=== PATIENT | male | born 1970 | race Caucasian/White ===

== ENCOUNTER 2018-04-18 16:23 | Emergency (ER) | payer MEDICARE, MEDICAID ==
[2018-04-18 16:50] VITALS: BP 131/79
--- NOTE | 2018-04-18 17:03 | EDM.PDOC ---
ED HPI GENERAL MEDICAL PROBLEM - General Chief Complaint: Cardiovascular Problem Stated Complaint: SWELLING IN HIS LEGS AND HIGH BP Time Seen by Provider: 04/18/18 16:44 - History of Present Illness INITIAL COMMENTS - FREE TEXT/NARRATIVE: HISTORY AND PHYSICAL: History of present illness: The patient is a 48-year-old male with a history of hypertension hypercholesterolemia and mental challenges who resides at [facility] and presents with staff with their concerns about elevated blood pressure today of 142/90 and lower extremity edema. Patient says his legs are not painful and has been doing a lot of standing and walking and he is compliant with his medications but his legs are swollen. The report that was given they noticed increased swelling today but he is not short of breath or having any chest pain no abdominal pain no fevers chills nausea or vomiting. Patient's medications are prescribed by Dr. Becker at [facility] who was not in the clinic for me to have a dialogue with him. The only diuretic the patient is taking his hydrochlorothiazide 12.5 mg daily. Patient has no complaints and when asked about these ever worn compression hose he says he doesn't recall that. His legs are bilaterally swollen and he says it does not extend beyond the knees. Neurosensory changes are unchanged and he has no weakness in his legs. Review of systems: As per history of present illness and below otherwise all systems reviewed and negative. Past medical history: As per history of present illness and as reviewed below otherwise noncontributory. Surgical history: As per history of present illness and as reviewed below otherwise noncontributory. Social history: No reported history of drug or alcohol abuse. Family history: As per history of present illness and as reviewed below otherwise noncontributory. Physical exam: General: Well-developed well-nourished man who is nontoxic and vital signs were noted by me. He is speaking clearly and easily without breathlessness and has no visible facial swelling. HEENT: Atraumatic, normocephalic, negative for conjunctival pallor or scleral icterus, mucous membranes moist, throat clear, neck supple, nontender, trachea midline. Lungs: Clear to auscultation, breath sounds equal bilaterally, chest nontender. No work of breathing rales stridor or accessory muscle Heart: S1S2, regular rate and rhythm no overt murmurs Abdomen: Soft, nondistended, nontender. Negative for masses or hepatosplenomegaly. Negative for costovertebral tenderness. No fluid wave is appreciated bowel sounds are normoactive Pelvis: Stable nontender. Genitourinary: Deferred. Rectal: Deferred. Extremities: Atraumatic, negative for cords or calf pain. Neurovascular unremarkable. There is +1 pedal edema bilaterally but the legs are symmetric and there is soft tissue edema from the knees to the feet bilaterally. There is no redness or rashes or lesions appreciated on the legs. Neuro: Awake, alert, oriented. Cranial nerves II through XII unremarkable. Cerebellum unremarkable. Motor and sensory unremarkable throughout. Exam nonfocal. Diagnostics: CBC CMP UA chest x-ray Therapeutics: Potassium orally, Lasix x and dose The staff at bedside from [facility] state that he has an appointment with Dr. Becker on Sunday of next week. I discussed with them testing results and said that I will give one dose of Lasix along with a dose of potassium here but have recommended keeping the clinic follow-up appointment if the swelling persists. I've also recommended that the patient get knee-high compression stockings at the pharmacy or [facility] and to elevate his legs. Caregiver bedside says he does sit in a chair with his legs down for long periods of time. I've also talked about inducing salt intake in his diet if possible. Impression: Bilateral Lower extremity edema Definitive disposition and diagnosis as appropriate pending reevaluation and review of above. - Related Data Allergies Allergy/AdvReac Type Severity Reaction Status Date / Time No Known Allergies Allergy Verified 04/18/18 16:48 Home Meds: Home Meds Aspirin [Ecotrin] 81 mg PO DAILY 03/31/16 [History] Hydrochlorothiazide 12.5 mg PO DAILY 03/31/16 [History] [place] Carbonate [Eskalith CR] 1 tab PO BID 03/31/16 [History] Polyethylene Glycol 3350 [Miralax] 17 gm PO DAILY 03/31/16 [History] Potassium Chloride 10 meq PO DAILY 03/31/16 [History] Venlafaxine [Effexor XR] 150 mg PO DAILY 03/31/16 [History] amLODIPine [Norvasc] 10 mg PO DAILY 03/31/16 [History] atorvaSTATin [Lipitor] 10 mg PO DAILY 03/31/16 [History] buPROPion HCl [Wellbutrin Xl] 300 mg PO DAILY 04/18/18 [History] Past Medical History HEENT History: Other HEENT History: wears glasses Cardiovascular History: Reports: High Cholesterol, Hypertension Respiratory History: Reports: None Gastrointestinal History: Reports: None Genitourinary History: Reports: None Musculoskeletal History: Reports: None Neurological History: Reports: TIA, Other (See Below) Other Neuro History: cognitive deficits Psychiatric History: Reports: Anxiety, Bipolar, Depression, Developmental Delay Endocrine/Metabolic History: Reports: Obesity/BMI 30+, Other (See Below) Hematologic History: Reports: None Immunologic History: Reports: None Oncologic (Cancer) History: Reports: None Dermatologic History: Reports: None - Infectious Disease History Infectious Disease History: Reports: None - Past Surgical History HEENT Surgical History: Reports: Other (See Below) Social & Family History - Family History Family Medical History: Noncontributory ED ROS GENERAL - Review of Systems Review Of Systems: ROS reveals no pertinent complaints other than HPI. ED EXAM, GENERAL - Physical Exam Exam: See Below (See dictation) Course - Vital Signs Last Recorded V/S: Last Vital Signs Temp 36.8 C 04/18/18 16:43 Pulse 77 04/18/18 16:43 Resp 18 04/18/18 16:43 BP 131/79 04/18/18 16:43 Pulse Ox 96 04/18/18 16:43 - Orders/Labs/Meds Orders: Active Orders 24 hr Category Date Time Status Chest 1V Frontal [CR] Stat Exams 04/18/18 16:58 Taken UA W/MICROSCOPIC [URIN] Stat Lab 04/18/18 18:00 Received Furosemide [Lasix] Med 04/18/18 18:06 Once 20 mg PO ONETIME ONE Labs: Laboratory Tests 04/18/18 04/18/18 Range/Units 17:10 17:10 WBC 9.36 (4.0-11.0) K/uL RBC 4.05 L (4.50-5.90) M/uL Hgb 12.3 L (13.0-17.0) g/dL Hct 36.7 L (38.0-50.0) % MCV 90.6 (80.0-98.0) fL MCH 30.4 (27.0-32.0) pg MCHC 33.5 (31.0-37.0) g/dL RDW Std Deviation 45.7 (28.0-62.0) fl RDW Coeff of Cash 14 (11.0-15.0) % Plt Count 317 (150-400) K/uL MPV 8.10 (7.40-12.00) fL Neut % (Auto) 72.9 (48.0-80.0) % Lymph % (Auto) 13.4 L (16.0-40.0) % [place] % (Auto) 9.6 (0.0-15.0) % Eos % (Auto) 3.7 (0.0-7.0) % Baso % (Auto) 0.4 (0.0-1.5) % Neut # (Auto) 6.8 H (1.4-5.7) K/uL Lymph # (Auto) 1.3 (0.6-2.4) K/uL [place] # (Auto) 0.9 H (0.0-0.8) K/uL Eos # (Auto) 0.4 (0.0-0.7) K/uL Baso # (Auto) 0.0 (0.0-0.1) K/uL Nucleated RBC % 0.0 /100WBC Nucleated RBCs # 0 K/uL Sodium 139 (136-148) mmol/L Potassium 3.3 L (3.5-5.1) mmol/L Chloride 107 (98-107) mmol/L Carbon Dioxide 27.9 (21.0-32.0) mmol/L BUN 20 H (7.0-18.0) mg/dL Creatinine 1.4 H (0.8-1.3) mg/dL Est Cr Clr Drug Dosing 56.13 mL/min Estimated GFR (MDRD) 54.1 ml/min Glucose 145 H (74-106) mg/dL Calcium 9.2 (8.5-10.1) mg/dL Total Bilirubin 0.6 (0.2-1.0) mg/dL AST 19 (15-37) IU/L ALT 21 (14-63) IU/L Alkaline Phosphatase 85 (46-116) U/L Total Protein 7.3 (6.4-8.2) g/dL Albumin 3.6 (3.4-5.0) g/dL Globulin 3.7 H (2.0-3.5) g/dL Albumin/Globulin Ratio 1.0 L (1.3-2.8) Meds: Medications Discontinued Medications Generic Name Dose Route Start Last Admin Trade Name Chele PRN Reason Stop Dose Admin Furosemide 40 mg 04/18/18 18:04 Lasix PO 04/18/18 18:05 ONETIME ONE Potassium Chloride 40 meq 04/18/18 18:04 Klor-Con M20 PO 04/18/18 18:05 ONETIME ONE Departure - Departure Time of Disposition: 18:25 Disposition: Home, Self-Care 01 Condition: Good Clinical Impression: Bilateral lower extremity edema Referrals: PCP,None [Primary Care Provider] - Forms: ED Department Discharge Additional Instructions: The following information is given to patients seen in the emergency department who are being discharged to home. This information is to outline your options for follow-up care. We provide all patients seen in our emergency department with a follow-up referral. The need for follow-up, as well as the timing and circumstances, are variable depending upon the specifics of your emergency department visit. If you don't have a primary care physician on staff, we will provide you with a referral. We always advise you to contact your personal physician following an emergency department visit to inform them of the circumstance of the visit and for follow-up with them and/or the need for any referrals to a consulting specialist. The emergency department will also refer you to a specialist when appropriate. This referral assures that you have the opportunity for followup care with a specialist. All of these measure are taken in an effort to provide you with optimal care, which includes your followup. Under all circumstances we always encourage you to contact your private physician who remains a resource for coordinating your care. When calling for followup care, please make the office aware that this follow-up is from your recent emergency room visit. If for any reason you are refused follow-up, please contact the [facility] emergency department at and ask to speak to the emergency department charge nurse. [address] [place] [address] Please continue all home medications and keep your appointment on Sunday with Dr. Becker. Please buy [id number] compression knee high hose at either [facility] or [facility] to help with the swelling. Elevate the legs as much as possible and reduce sodium in the diet. You have been given a small dose of Lasix here so we will have increased urination over the next 8-12 hours. Please also eat more potassium-rich foods such as bananas whole-grain and vegetables. Return to ER as needed and as discussed. - My Orders Last 24 Hours: My Active Orders 04/18/18 16:58 Chest 1V Frontal [CR] Stat 04/18/18 18:00 UA W/MICROSCOPIC [URIN] Stat 04/18/18 18:06 Furosemide [Lasix] 20 mg PO ONETIME ONE - Assessment/Plan Last 24 Hours: My Active Orders 04/18/18 16:58 Chest 1V Frontal [CR] Stat 04/18/18 18:00 UA W/MICROSCOPIC [URIN] Stat 04/18/18 18:06 Furosemide [Lasix] 20 mg PO ONETIME ONE
[2018-04-18] MEDS ORDERED: Furosemide 40 MG Tab PO ONE (18:04)
[2018-04-18] MEDS ORDERED: Potassium Chloride 20 MEQ Tab.ER PO ONE (18:04)
[2018-04-18] MEDS ORDERED: Furosemide 20 MG Tab PO ONE (18:06)
[2018-04-18] MEDS ORDERED: Furosemide 40 MG Tab ONE (19:22)
--- NOTE | 2018-04-19 15:42 | CR ---
EXAM DATE: 04/18/18 PATIENT'S AGE: 48 Patient: SHANAE MCWILLIAMS Facility: [place], [place] Site . Site : 1970 Study: XRay Chest [id number]/31/2018 5:19:37 PM Ordering Physician: Max Robbins Final Report: HISTORY: High blood pressure, bilateral leg swelling. Shakiness. FINDINGS: AP portable chest radiograph is compared with 31 Mar 2016. Cardiac silhouette is acceptable size. Pulmonary vasculature is free of cephalization. There is minimal linear scarring at the right base. No lobar consolidation or pleural effusion is seen. Peridiscal spurring is seen within the thoracic spine. IMPRESSION: 1. Small amount of linear scarring in the right lung base. 2. No acute cardiopulmonary disease. Dictated by Faina Addison MD @ 04/18/2018 5:37:28 PM Dictated by: Faina Addison MD @ 04/18/2018 17:37:38 (Electronic Signature) Report Signed by Proxy. [facility]ALS[facility]
== END 2018-04-18 18:46 | disposition home or self-care (01) ==
LOC: MW.ED 16:23
DX: R60.0 Localized edema (principal); I10 Essential (primary) hypertension; E78.00 Pure hypercholesterolemia, unspecified; E66.9 Obesity, unspecified; Z79.82 Long term (current) use of aspirin; Z79.899 Other long term (current) drug therapy
CPT/HCPCS: 36415; 71045; 80053; 81001; 85025; 99283; A9270

== ENCOUNTER 2019-10-27 14:06 | Emergency (ER) | payer MEDICARE, MEDICAID ==
--- NOTE | 2019-10-27 14:14 | EDM.PDOC ---
ED HPI GENERAL MEDICAL PROBLEM - General Chief Complaint: Trauma Stated Complaint: EMS BROKEN ARM Time Seen by Provider: 10/27/19 14:14 Source of Information: Reports: Patient - History of Present Illness INITIAL COMMENTS - FREE TEXT/NARRATIVE: HISTORY AND PHYSICAL: History of present illness: [Presents with dislocation of his right elbow, he had a slip and fall prior to arrival he comes in via EMS, she denies head injury or loss of consciousness. He rates pain 0 out of 10 He is neurovascularly intact concerning the right upper extremity, Dr. Aviles orthopedist is called in for reduction Review of systems: As per history of present illness and below otherwise all systems reviewed and negative. Past medical history: As per history of present illness and as reviewed below otherwise noncontributory. Surgical history: As per history of present illness and as reviewed below otherwise noncontributory. Social history: No reported history of drug or alcohol abuse. Family history: As per history of present illness and as reviewed below otherwise noncontributory. Physical exam: HEENT: Atraumatic, normocephalic, pupils reactive, negative for conjunctival pallor or scleral icterus, mucous membranes moist, throat clear, neck supple, nontender, trachea midline. Lungs: Clear to auscultation, breath sounds equal bilaterally, chest nontender. Heart: S1S2, regular, negative for clicks, rubs, or JVD. Abdomen: Soft, nondistended, nontender. Negative for masses or hepatosplenomegaly. Negative for costovertebral tenderness. Pelvis: Stable nontender. Genitourinary: Deferred. Rectal: Deferred. Extremities: Right elbow deformity noted more otherwise atraumatic concerning the left upper extremity and lower extremities negative for cords or calf pain. Neurovascular unremarkable. Neuro: Awake, alert, oriented. Cranial nerves II through XII unremarkable. Cerebellum unremarkable. Motor and sensory unremarkable throughout. Exam nonfocal. Diagnostics: [Cbc CMP UA INR lithium level ] Therapeutics: pt refused pain medication consult ortho eval and treat Impression: Right Elbow injury/deformity Definitive disposition and diagnosis as appropriate pending reevaluation and review of above. - Related Data Allergies Allergy/AdvReac Type Severity Reaction Status Date / Time No Known Allergies Allergy Verified 04/18/18 16:48 Home Meds: Home Meds Aspirin [Ecotrin] 81 mg PO DAILY 03/31/16 [History] Hydrochlorothiazide 12.5 mg PO DAILY 03/31/16 [History] [place] Carbonate [Eskalith CR] 1 tab PO BID 03/31/16 [History] Polyethylene Glycol 3350 [Miralax] 17 gm PO DAILY 03/31/16 [History] Potassium Chloride 10 meq PO DAILY 03/31/16 [History] Venlafaxine [Effexor XR] 150 mg PO DAILY 03/31/16 [History] amLODIPine [Norvasc] 10 mg PO DAILY 03/31/16 [History] atorvaSTATin [Lipitor] 10 mg PO DAILY 03/31/16 [History] buPROPion HCl [Wellbutrin Xl] 300 mg PO DAILY 04/18/18 [History] Past Medical History HEENT History: Other HEENT History: wears glasses Cardiovascular History: Reports: High Cholesterol, Hypertension Respiratory History: Reports: None Gastrointestinal History: Reports: None Genitourinary History: Reports: None Musculoskeletal History: Reports: None Neurological History: Reports: TIA, Other (See Below) Other Neuro History: cognitive deficits Psychiatric History: Reports: Anxiety, Bipolar, Depression, Developmental Delay Endocrine/Metabolic History: Reports: Obesity/BMI 30+, Other (See Below) Hematologic History: Reports: None Immunologic History: Reports: None Oncologic (Cancer) History: Reports: None Dermatologic History: Reports: None - Infectious Disease History Infectious Disease History: Reports: None - Past Surgical History HEENT Surgical History: Reports: Other (See Below) Social & Family History - Family History Family Medical History: Noncontributory Review of Systems - Review of Systems Review Of Systems: See Below ED EXAM, GENERAL - Physical Exam Exam: See Below Course - Vital Signs Last Recorded V/S: Last Vital Signs Temp 98.3 F 10/27/19 14:10 Pulse 94 10/27/19 14:10 Resp 17 10/27/19 14:10 BP 151/95 H 10/27/19 14:10 Pulse Ox 98 10/27/19 14:10 - Orders/Labs/Meds Orders: Active Orders 24 hr Category Date Time Status EKG 12 Lead [EKG Documentation Completion] [RC] ROUTINE Care 10/27/19 14:24 Active Notify Provider Consults [RC] ASDIRECTED Care 10/27/19 14:51 Active Consult to Physician [CONS] Stat Cons 10/27/19 14:50 Active Elbow 2V Rt [CR] Stat Exams 10/27/19 14:52 Taken LITHIUM [REF] Stat Lab 10/27/19 14:13 Received Labs: Laboratory Tests 10/27/19 10/27/19 10/27/19 Range/Units 14:13 14:13 14:13 WBC 7.82 (4.0-11.0) K/uL RBC 4.08 L (4.50-5.90) M/uL Hgb 12.0 L (13.0-17.0) g/dL Hct 36.6 L (38.0-50.0) % MCV 89.7 (80.0-98.0) fL MCH 29.4 (27.0-32.0) pg MCHC 32.8 (31.0-37.0) g/dL RDW Std Deviation 43.9 (28.0-62.0) fl RDW Coeff of Cash 13 (11.0-15.0) % Plt Count 306 (150-400) K/uL MPV 8.50 (7.40-12.00) fL Neut % (Auto) 71.0 (48.0-80.0) % Lymph % (Auto) 11.1 L (16.0-40.0) % [place] % (Auto) 14.3 (0.0-15.0) % Eos % (Auto) 3.2 (0.0-7.0) % Baso % (Auto) 0.4 (0.0-1.5) % Neut # (Auto) 5.6 (1.4-5.7) K/uL Lymph # (Auto) 0.9 (0.6-2.4) K/uL [place] # (Auto) 1.1 H (0.0-0.8) K/uL Eos # (Auto) 0.3 (0.0-0.7) K/uL Baso # (Auto) 0.0 (0.0-0.1) K/uL Nucleated RBC % 0.0 /100WBC Nucleated RBCs # 0 K/uL INR 1.00 Sodium 144 (136-148) mmol/L Potassium 3.2 L (3.5-5.1) mmol/L Chloride 105 (98-107) mmol/L Carbon Dioxide 27.6 (21.0-32.0) mmol/L BUN 16 (7.0-18.0) mg/dL Creatinine 1.5 H (0.8-1.3) mg/dL Est Cr Clr Drug Dosing 57.63 mL/min Estimated GFR (MDRD) 49.7 ml/min Glucose 154 H (74-106) mg/dL Calcium 9.2 (8.5-10.1) mg/dL Total Bilirubin 0.2 (0.2-1.0) mg/dL AST 17 (15-37) IU/L ALT 24 (14-63) IU/L Alkaline Phosphatase 87 (46-116) U/L Total Protein 7.3 (6.4-8.2) g/dL Albumin 3.3 L (3.4-5.0) g/dL Globulin 4.0 (2.6-4.0) g/dL Albumin/Globulin Ratio 0.8 L (0.9-1.6) Departure - Departure Time of Disposition: 15:06 Disposition: Home, Self-Care 01 Condition: Good Clinical Impression: Dislocation of elbow, right, closed - Discharge Information Referrals: PCP,Unobtain [Primary Care Provider] - Forms: ED Department Discharge Additional Instructions: Recommendations per Dr. Aviles, orthopedist return if symptoms persist or worsen or new concerning symptoms develop [facility] [address], [address] [place] [address] my orthopedic The following information is given to patients seen in the emergency department who are being discharged to home. This information is to outline your options for follow-up care. We provide all patients seen in our emergency department with a follow-up referral. The need for follow-up, as well as the timing and circumstances, are variable depending upon the specifics of your emergency department visit. If you don't have a primary care physician on staff, we will provide you with a referral. We always advise you to contact your personal physician following an emergency department visit to inform them of the circumstance of the visit and for follow-up with them and/or the need for any referrals to a consulting specialist. The emergency department will also refer you to a specialist when appropriate. This referral assures that you have the opportunity for follow-up care with a specialist. All of these measure are taken in an effort to provide you with optimal care, which includes your follow-up. Under all circumstances we always encourage you to contact your private physician who remains a resource for coordinating your care. When calling for follow-up care, please make the office aware that this follow-up is from your recent emergency room visit. If for any reason you are refused follow-up, please contact the [facility] emergency department at and asked to speak to the emergency department charge nurse. - My Orders Last 24 Hours: My Active Orders 10/27/19 14:13 LITHIUM [REF] Stat 10/27/19 14:24 EKG 12 Lead [EKG Documentation Completion] [RC] ROUTINE 10/27/19 14:50 Consult to Physician [CONS] Stat 10/27/19 14:51 Notify Provider Consults [RC] ASDIRECTED 10/27/19 14:52 Elbow 2V Rt [CR] Stat - Assessment/Plan Last 24 Hours: My Active Orders 10/27/19 14:13 LITHIUM [REF] Stat 10/27/19 14:24 EKG 12 Lead [EKG Documentation Completion] [RC] ROUTINE 10/27/19 14:50 Consult to Physician [CONS] Stat 10/27/19 14:51 Notify Provider Consults [RC] ASDIRECTED 10/27/19 14:52 Elbow 2V Rt [CR] Stat
--- NOTE | 2019-10-27 14:31 | CR ---
Right elbow: Two views of the right elbow were obtained. Comparison: No previous study. Dislocated elbow is identified. Distal humerus appears somewhat abnormal presumably due to old fracture deformity. Several small bony densities are noted around the elbow presumably due to minimal chip fractures. Impression: 1. Dislocated right elbow. 2. Mildly abnormal appearance of the distal humerus most likely representing old fracture deformity. Diagnostic code #5 This report was dictated in [place] Standard Time MTDD
[2019-10-27 15:00] LABS: CARBON DIOXIDE,CO2 27.6 mmol/L (21.0-32.0); POTASSIUM,K 3.2 mmol/L (3.5-5.1)
--- NOTE | 2019-10-27 15:05 | PCM.CONS ---
H&P History of Present Illness - General Date of Service: 10/27/19 Admit Problem/Dx: Right elbow dislocation Source of Information: Provider History Limitations: Reports: Other - History of Present Illness Initial Comments - Free Text/Narative: 49 year old RHD male who slipped on ice and landed on right elbow. Brought to ER by EMS. No other significant injuries. No hand numbness. Has development delay. Lives independently in apartment. Accompanied by statistical programmer. Onset of Symptoms: Reports: Sudden Symptom Onset Date: 10/27/19 Symptom Onset Time: 01:00 Location: Reports: Upper Extremity, Right Severity: Mild Improves with: Reports: Immobilization Worsens with: Reports: Movement Context: Reports: Trauma Associated Symptoms: Reports: No Other Symptoms - Related Data Allergies/Adverse Reactions: Allergies Allergy/AdvReac Type Severity Reaction Status Date / Time No Known Allergies Allergy Verified 04/18/18 16:48 Home Medications: Home Meds Aspirin [Ecotrin] 81 mg PO DAILY 03/31/16 [History] Hydrochlorothiazide 12.5 mg PO DAILY 03/31/16 [History] [place] Carbonate [Eskalith CR] 1 tab PO BID 03/31/16 [History] Polyethylene Glycol 3350 [Miralax] 17 gm PO DAILY 03/31/16 [History] Potassium Chloride 10 meq PO DAILY 03/31/16 [History] Venlafaxine [Effexor XR] 150 mg PO DAILY 03/31/16 [History] amLODIPine [Norvasc] 10 mg PO DAILY 03/31/16 [History] atorvaSTATin [Lipitor] 10 mg PO DAILY 03/31/16 [History] buPROPion HCl [Wellbutrin Xl] 300 mg PO DAILY 04/18/18 [History] Past Medical History HEENT History: Other HEENT History: wears glasses Cardiovascular History: Reports: High Cholesterol, Hypertension Respiratory History: Reports: None Gastrointestinal History: Reports: None Genitourinary History: Reports: None Musculoskeletal History: Reports: None Neurological History: Reports: TIA, Other (See Below) Other Neuro History: cognitive deficits Psychiatric History: Reports: Anxiety, Bipolar, Depression, Developmental Delay Endocrine/Metabolic History: Reports: Obesity/BMI 30+, Other (See Below) Hematologic History: Reports: None Immunologic History: Reports: None Oncologic (Cancer) History: Reports: None Dermatologic History: Reports: None - Infectious Disease History Infectious Disease History: Reports: None - Past Surgical History HEENT Surgical History: Reports: Other (See Below) Social & Family History - Family History Family Medical History: Noncontributory - Tobacco Use Smoking Status *Q: Never Smoker Second Hand Smoke Exposure: No - Caffeine Use Caffeine Use: Reports: None - Recreational Drug Use Recreational Drug Use: No H&P Review of Systems - Review of Systems: Review Of Systems: See Below Musculoskeletal: Reports: Joint Pain, Joint Swelling Exam - Exam Exam: See Below - Vital Signs Vital Signs: Last Vital Signs Temp 98.3 F 10/27/19 14:10 Pulse 94 10/27/19 14:10 Resp 17 10/27/19 14:10 BP 151/95 H 10/27/19 14:10 Pulse Ox 98 10/27/19 14:10 Weight: 200 lb - Exam General: Alert, Oriented HEENT: Conjunctiva Clear Neck: Supple Skin: Warm, Dry, Intact Physical Exam Comments:: Initial exam deferred due to elbow dislocation Able to active move elbow, wrist, and hand after reduction Radial pulse palpable Normal sensation to light touch - Patient Data Lab Results Last 24 hrs: Laboratory Results - last 24 hr 10/27/19 10/27/19 Range/Units 14:13 14:13 WBC 7.82 (4.0-11.0) K/uL RBC 4.08 L (4.50-5.90) M/uL Hgb 12.0 L (13.0-17.0) g/dL Hct 36.6 L (38.0-50.0) % MCV 89.7 (80.0-98.0) fL MCH 29.4 (27.0-32.0) pg MCHC 32.8 (31.0-37.0) g/dL RDW Std Deviation 43.9 (28.0-62.0) fl RDW Coeff of Cash 13 (11.0-15.0) % Plt Count 306 (150-400) K/uL MPV 8.50 (7.40-12.00) fL Neut % (Auto) 71.0 (48.0-80.0) % Lymph % (Auto) 11.1 L (16.0-40.0) % [place] % (Auto) 14.3 (0.0-15.0) % Eos % (Auto) 3.2 (0.0-7.0) % Baso % (Auto) 0.4 (0.0-1.5) % Neut # (Auto) 5.6 (1.4-5.7) K/uL Lymph # (Auto) 0.9 (0.6-2.4) K/uL [place] # (Auto) 1.1 H (0.0-0.8) K/uL Eos # (Auto) 0.3 (0.0-0.7) K/uL Baso # (Auto) 0.0 (0.0-0.1) K/uL Nucleated RBC % 0.0 /100WBC Nucleated RBCs # 0 K/uL INR 1.00 Result Diagrams: 10/27/19 14:13 Consult PN Assessment/Plan Procedures: Procedures ASSAY OF LIPASE (11/07/17) CHEST X-RAY 2VW FRONTAL&LATL (03/31/16) COMPLETE CBC W/AUTO DIFF WBC (04/18/18) COMPREHEN METABOLIC PANEL (04/18/18) CT ABD & PELV W/CONTRAST (11/07/17) EMERGENCY DEPT VISIT (04/18/18) EMERGENCY DEPT VISIT (11/07/17) EMERGENCY DEPT VISIT (03/31/16) EXTREMITY STUDY (04/13/16) HERNIA REPAIR W/MESH (12/22/16) HYDRATE IV INFUSION ADD-ON (11/07/17) INFLUENZA ASSAY W/OPTIC (11/07/17) PROTHROMBIN TIME (11/07/17) PRP I/YENY INIT BLOCK >5 YR (11/07/17) ROUTINE VENIPUNCTURE (04/18/18) RPR VENTRAL YENY INIT BLOCK (12/22/16) THER/PROPH/DIAG INJ IV PUSH (03/31/16) THER/PROPH/DIAG IV INF INIT (11/07/17) TISSUE EXAM BY PATHOLOGIST (11/07/17) TX/PRO/DX INJ NEW DRUG ADDON (11/07/17) URINALYSIS AUTO W/SCOPE (04/18/18) X-RAY EXAM CHEST 1 VIEW (04/18/18) X-RAY EXAM OF KNEE 3 (03/31/16) Problem List Initiated/Reviewed/Updated: Yes Plan: Closed reduction, no sedation required Post-reduction x-rays confirm reduction and patient able to actively flex and extend elbow Sling for comfort, ok for patient to remove Ibuprofen 600 mg po q 6 hours prn Follow-up 11/04/19 at clinic Requesting Provider: Dr. Kelley Date Consult Requested: 10/27/19 Reason for Consult: Right elbow dislocation Patient History Reviewed: Yes Admission H&P Reviewed: Yes Notified Requestor: Yes - Free Text/Narrative Note: Closed reduction of right elbow dislocation with longitudinal traction Patient tolerated procedure well Sling post reduction Radial pulse palpable post reduction Normal sensation to light touch post reduction
--- NOTE | 2019-10-27 15:24 | CR ---
Right elbow: Three views the right elbow were obtained. Comparison: Previous right elbow study performed earlier the same day. Alignment is slightly abnormal. Some of this may relate to joint effusion with dislocation mostly being reduced. Bony densities are noted off the medial elbow which are well corticated and felt compatible with old injury. Soft tissue swelling is seen. No definite acute fracture is appreciated. Joint effusion is seen. Impression: 1. Slightly abnormal alignment, possibly relating to joint effusion. Dislocation is otherwise reduced. CT exam would be needed to confirm good reduction if clinically needed. 2. Well corticated bony densities off the medial elbow compatible with old injury. 3. No definite acute fracture is seen. Diagnostic code #3 This report was dictated in [place] Standard Time MTDD
[2019-10-27 15:48] VITALS: BP 139/83; PULSE 93
== END 2019-10-27 15:34 | disposition home or self-care (01) ==
LOC: MW.ED 14:06
DX: S53.104A Unspecified dislocation of right ulnohumeral joint, initial encounter (principal); I10 Essential (primary) hypertension; E78.00 Pure hypercholesterolemia, unspecified; Z86.73 Personal history of transient ischemic attack (TIA), and cerebral infarction without residual deficits; F41.9 Anxiety disorder, unspecified; F32.9 Major depressive disorder, single episode, unspecified; E66.9 Obesity, unspecified; Z68.30 Body mass index [BMI] 30.0-30.9, adult; Z79.899 Other long term (current) drug therapy; Z79.82 Long term (current) use of aspirin; W00.0XXA Fall on same level due to ice and snow, initial encounter
CPT/HCPCS: 24600; 73070-26-RT; 73070-RT; 80053; 80178; 85025; 85610; 93005; 99283; 99285-25

== ENCOUNTER 2021-05-13 06:49 | Day surgery (SDC) | payer MEDICARE, MEDICAID ==
[~2021-05-13 06:49] MED LIST: Lactated Ringers 1,000 ML IV SCH
[2021-05-13] MEDS ORDERED: propofoL 50 ML ONE (06:53)
[2021-05-13] MEDS ORDERED: fentaNYL 100 MCG/2 ML SDV ONE (07:09)
[2021-05-13] MEDS ORDERED: Lidocaine 2% 5 ML SDV ONE (07:10)
[2021-05-13] MEDS ORDERED: Ondansetron 4 MG/2 ML SDV ONE (07:10)
[2021-05-13] MEDS ORDERED: Midazolam 1 MG/ML 2 ML SDV ONE (07:13)
[2021-05-13] MEDS ORDERED: Glycopyrrolate 0.2 MG/ML SDV ONE (07:25)
--- NOTE | 2021-05-13 07:34 | PCM.PREANE ---
Preanesthetic Assessment - Anesthesia/Transfusion/Family Hx Anesthesia History: Prior Anesthesia Without Reaction Transfusion History: No Prior Transfusion(s) - Review of Systems General: No Symptoms Pulmonary: No Symptoms Cardiovascular: No Symptoms Gastrointestinal: No Symptoms Neurological: Trouble Speaking Other: Reports: None - Physical Assessment NPO Status Date: 05/13/21 NPO Status Time: 00:00 Height: 5 ft 5 in Weight: 218 lb ASA Class: 3 Mental Status: Alert & Oriented x3 Airway Class: Mallampati = 3 Dentition: Reports: Normal Dentition, Broken Tooth/Teeth, Missing Tooth/Teeth, Caries ROM/Head Extension: Full Lungs: Clear to Auscultation, Normal Respiratory Effort Cardiovascular: Regular Rate, Regular Rhythm - Allergies Allergies/Adverse Reactions: Allergies Allergy/AdvReac Type Severity Reaction Status Date / Time No Known Allergies Allergy Verified 05/09/21 09:57 - Acknowledgements Anesthesia Type Planned: General Anesthesia Pt an Appropriate Candidate for the Planned Anesthesia: Yes Alternatives and Risks of Anesthesia Discussed w Pt/Guardian: Yes Pt/Guardian Understands and Agrees with Anesthesia Plan: Yes PreAnesthesia Questionnaire HEENT History: Other HEENT History: wears glasses Cardiovascular History: Reports: High Cholesterol, Hypertension Respiratory History: Reports: None Gastrointestinal History: Reports: Chronic Constipation Genitourinary History: Reports: None Musculoskeletal History: Reports: None Neurological History: Reports: TIA, Other (See Below) Other Neuro History: cognitive deficits Psychiatric History: Reports: Anxiety, Bipolar, Depression, Developmental Delay Endocrine/Metabolic History: Reports: Obesity/BMI 30+ Hematologic History: Reports: None Immunologic History: Reports: None Oncologic (Cancer) History: Reports: None Dermatologic History: Reports: None - Infectious Disease History Infectious Disease History: Reports: None - Past Surgical History Head Surgeries/Procedures: Reports: None HEENT Surgical History: Reports: Other (See Below) Other HEENT Surgeries/Procedures: repair of perforated right eardrum Cardiovascular Surgical History: Reports: None Respiratory Surgical History: Reports: None GI Surgical History: Reports: Hernia, Abdominal, Hernia, Inguinal Other GI Surgeries/Procedures: hx umbilical hernia repair & inguinal hernia repair Male Surgical History: Reports: None Endocrine Surgical History: Reports: None Neurological Surgical History: Reports: None Musculoskeletal Surgical History: Reports: None Oncologic Surgical History: Reports: None Dermatological Surgical History: Reports: None - SUBSTANCE USE Tobacco Use Status *Q: Never Tobacco User - HOME MEDS Home Medications: Home Meds Aspirin [Ecotrin] 81 mg PO DAILY 03/31/16 [History] Hydrochlorothiazide 12.5 mg PO DAILY 03/31/16 [History] Potassium Chloride 10 meq PO DAILY 03/31/16 [History] Venlafaxine [Effexor XR] 150 mg PO DAILY 03/31/16 [History] amLODIPine [Norvasc] 10 mg PO DAILY 03/31/16 [History] atorvaSTATin [Lipitor] 10 mg PO DAILY 03/31/16 [History] polyethylene glycoL 3350 [Miralax] 17 gm PO DAILY 03/31/16 [History] buPROPion HCL [Wellbutrin Xl] 300 mg PO DAILY 04/18/18 [History] OXcarbazepine [Trileptal] 150 mg PO BID 05/10/21 [History] - CURRENT (IN HOUSE) MEDS Current Meds: Current Medications Lactated Ringer's (Ringers, Lactated) 1,000 mls @ 125 mls/hr IV ASDIRECTED DANIELLA Discontinued Medications Fentanyl (Fentanyl 100 Mcg/2 Ml Sdv) Confirm Administered Dose 100 mcg .ROUTE .STK-MED ONE Stop: 05/13/21 07:10 Glycopyrrolate (Glycopyrrolate 0.2 Mg/Ml Sdv) Confirm Administered Dose 0.2 mg .ROUTE .STK-MED ONE Stop: 05/13/21 07:26 Propofol (Diprivan 50 Ml) Confirm Administered Dose 50 mls @ as directed .ROUTE .STK-MED ONE Stop: 05/13/21 06:54 Lidocaine (Lidocaine 2% 5 Ml Sdv) Confirm Administered Dose 5 ml .ROUTE .STK-MED ONE Stop: 05/13/21 07:11 Midazolam HCl (Midazolam 1 Mg/Ml 2 Ml Sdv) Confirm Administered Dose 2 mg .ROUTE .STK-MED ONE Stop: 05/13/21 07:14 Ondansetron HCl (Ondansetron 4 Mg/2 Ml Sdv) Confirm Administered Dose 4 mg .ROUTE .STK-MED ONE Stop: 05/13/21 07:11
[2021-05-13] MEDS ORDERED: Lactated Ringers 1,000 ML IV SCH (08:30)
--- NOTE | 2021-05-13 08:33 | PCM.OPNOTE ---
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
--- NOTE | 2021-05-13 08:42 | PCM.POSTAN ---
POST ANESTHESIA ASSESSMENT - MENTAL STATUS Mental Status: Alert, Oriented - VITAL SIGNS Vital Signs: Last Vital Signs Temp 97.9 F 05/13/21 08:27 Pulse 70 05/13/21 08:37 Resp 21 H 05/13/21 08:37 BP 115/57 L 05/13/21 08:37 Pulse Ox 94 L 05/13/21 08:37 - RESPIRATORY Respiratory Status: Respiratory Rate WNL, Airway Patent, O2 Saturation Stable - CARDIOVASCULAR CV Status: Pulse Rate WNL, Blood Pressure Stable - GASTROINTESTINAL GI Status: No Symptoms - POST OP HYDRATION Hydration Status: Adequate & Stable
--- NOTE | 2021-05-13 08:42 | PCM48HPAN ---
Post Anesthesia Note - EVALUATION WITHIN 48HRS OF ANESTHETIC Vital Signs in Normal Range: Yes Patient Participated in Evaluation: Yes Respiratory Function Stable: Yes Airway Patent: Yes Cardiovascular Function Stable: Yes Hydration Status Stable: Yes Pain Control Satisfactory: Yes Nausea and Vomiting Control Satisfactory: Yes Mental Status Recovered: Yes Vital Signs: Last Vital Signs Temp 97.9 F 05/13/21 08:27 Pulse 70 05/13/21 08:37 Resp 21 H 05/13/21 08:37 BP 115/57 L 05/13/21 08:37 Pulse Ox 94 L 05/13/21 08:37
[2021-05-13 08:44] VITALS: BP 118/54; PULSE 68
--- NOTE | 2021-05-13 10:27 | OR ---
SURGEON: Hieu Torres M.D. DATE OF PROCEDURE: 05/13/2021 OPERATION PERFORMED: Colonoscopy. PRIMARY SURGEON: Hieu Torres M.D. EDITORIAL PROJECT MANAGER: GABE Segura student. ANESTHESIA: MAC. ASA CLASSIFICATION: III. PREOPERATIVE DIAGNOSIS: Desire for colorectal cancer screening. POSTOPERATIVE DIAGNOSIS: Pancolonic diverticulosis. DESCRIPTION OF PROCEDURE: The patient was taken to the endoscopy room and positioned on the endoscopy table in the left lateral decubitus position. Time-out was called for appropriate identification of patient and procedure. Monitored anesthesia care was provided. The colonoscope was inserted into the rectum and advanced with moderate difficulty to the cecum. The colon was quite long, and I did not have enough length from the scope to retroflex the colonoscope once we had reached the cecum. The cecum was identified by internal landmarks and external pressure. Diverticular changes were noted throughout the entire length of the colon. The cecum, ascending colon, hepatic flexure, transverse colon, splenic flexure, descending colon, sigmoid colon, and rectum were very well visualized. Prep was fair. No polyps were encountered. There was no evidence of angiodysplasia or inflammatory bowel disease. Once the colonoscope was withdrawn to the rectum, it was retroflexed to visualize the anal orifice from above. No tumors, polyps, or acute hemorrhoidal changes were noted. The colonoscope was then straightened. The rectum aspirated, and the colonoscope removed. The patient tolerated the procedure well and was taken to recovery room in stable condition. STACI / DOLLY /[id number] CASSIE
== END 2021-05-13 09:02 | disposition home or self-care (01) ==
LOC: MW.SDS 06:49
PROVIDERS: ATTEND Surgery
DX: Z12.11 Encounter for screening for malignant neoplasm of colon (principal); I10 Essential (primary) hypertension; K57.30 Diverticulosis of large intestine without perforation or abscess without bleeding; E78.00 Pure hypercholesterolemia, unspecified; F31.9 Bipolar disorder, unspecified; F79 Unspecified intellectual disabilities; K59.09 Other constipation; Z86.73 Personal history of transient ischemic attack (TIA), and cerebral infarction without residual deficits; Z79.899 Other long term (current) drug therapy
CPT/HCPCS: G0121; J2250; J2405; J2704; J3010; J3490; J7120

== ENCOUNTER 2021-12-21 16:45 | Emergency (ER) | payer MEDICARE, MEDICAID ==
[2021-12-21] MEDS ORDERED: Ondansetron 4 MG/2 ML SDV IVPUSH ONE (17:04)
[2021-12-21] MEDS ORDERED: Lactated Ringers 1,000 ML IV STA (17:04)
[2021-12-21] MEDS ORDERED: Alum Hydro/Mag Hydro/Simeth XS 15 ML, Lidocaine 2% 5 ML PO ONE ×2 (17:25)
[2021-12-21] MEDS ORDERED: Pantoprazole 80 MG in Sodium Chloride 0.9% 10 ML IVPUSH ONE (17:25)
[2021-12-21 18:04] LABS: BLOOD UREA NITROGEN,BUN 29 mg/dL (7.0-18.0); CARBON DIOXIDE,CO2 26.6 mmol/L (21.0-32.0); CHLORIDE,CL 103 mmol/L (98-107); GLUCOSE RANDOM 121 mg/dL (74-106); LIPASE 72 U/L (73-393); POTASSIUM,K 3.3 mmol/L (3.5-5.1); SODIUM,NA 140 mmol/L (136-148)
[2021-12-21 18:14] LABS: CORONAVIRUS COVID-19 NAA NEGATIVE (NEGATIVE); INFLUENZA A NAA NEGATIVE (NEGATIVE); INFLUENZA B NAA NEGATIVE (NEGATIVE)
[2021-12-21] MEDS ORDERED: Iopamidol 755 MG/ML 500 ML Multipack Bottle IVPUSH STA (18:30)
[2021-12-21 20:56] VITALS: BP 140/100; PULSE 106
== END 2021-12-21 20:50 | disposition home or self-care (01) ==
LOC: MW.ED 16:45
DX: K43.9 Ventral hernia without obstruction or gangrene (principal); R11.2 Nausea with vomiting, unspecified; Z79.82 Long term (current) use of aspirin; Z79.899 Other long term (current) drug therapy; Z20.822 Contact with and (suspected) exposure to COVID-19
CPT/HCPCS: 0240U; 36415; 74177; 80053; 83690; 84484; 85025; 93005; 96374; 96375; 99284; A9270; C9113; J2405; J7120; Q9967

== ENCOUNTER 2022-01-16 06:56 | Day surgery (SDC) | payer MEDICARE, MEDICAID ==
[~2022-01-16 06:56] MED LIST changes: +ceFAZolin 2 GM in Premix Bag 1 BAG IV ONE
[2022-01-16] MEDS ORDERED: Naloxone 0.4 MG/ML SDV IVPUSH PRN (07:32)
[2022-01-16] MEDS ORDERED: Albuterol 0.083% 2.5 MG/3 ML Neb Soln NEB PRN (07:32)
[2022-01-16] MEDS ORDERED: fentaNYL 100 MCG/2 ML SDV IVPUSH PRN (07:32)
[2022-01-16] MEDS ORDERED: HYDROmorphone 1 MG/ML Syringe IVPUSH PRN (07:32)
[2022-01-16] MEDS ORDERED: Metoclopramide 10 MG/2 ML SDV IVPUSH PRN (07:32)
[2022-01-16] MEDS ORDERED: Ondansetron 4 MG/2 ML SDV IVPUSH PRN ×2 (07:32→10:27)
[2022-01-16] MEDS ORDERED: Ropivacaine 0.5% 5 MG/ML 30 ML SDV ONE (08:16)
[2022-01-16] MEDS ORDERED: Lidocaine 2% 5 ML SDV ONE (08:25)
[2022-01-16] MEDS ORDERED: Dexamethasone 4 MG/ML 5 ML MDV ONE (08:25)
[2022-01-16] MEDS ORDERED: Dexmedetomidine 200 MCG/2 ML SDV ONE (08:25)
[2022-01-16] MEDS ORDERED: Water For Injection, Sterile 20 ML ONE (08:26)
[2022-01-16] MEDS ORDERED: Esmolol 100 MG/10 ML SDV ONE (08:26)
[2022-01-16] MEDS ORDERED: Rocuronium Bromide 50 MG/5 ML Syringe ONE (08:26)
[2022-01-16] MEDS ORDERED: Propofol 200 MG/20 ML SDV ONE (08:26)
[2022-01-16] MEDS ORDERED: fentaNYL 100 MCG/2 ML SDV ONE (08:26)
[2022-01-16] MEDS ORDERED: Bupivacaine 0.5% 10 ML SDV ONE (08:33)
[2022-01-16] MEDS ORDERED: ceFAZolin 1 GM Vial ONE (08:33)
[2022-01-16] MEDS ORDERED: Ketorolac 30 MG/ML SDV ONE (09:26)
[2022-01-16] MEDS ORDERED: Sugammadex Sodium 200 MG/2 ML VIAL ONE (09:26)
[2022-01-16] MEDS ORDERED: Ondansetron 4 MG/2 ML SDV ONE (09:26)
[2022-01-16] MEDS ORDERED: Acetaminophen/HYDROcodone 325-5 MG Tab PO PRN (10:27)
[2022-01-16] MEDS ORDERED: Morphine 4 MG/ML VIAL IVPUSH PRN (10:27)
[2022-01-16] MEDS ORDERED: Lactated Ringers 1,000 ML IV SCH (10:30)
[2022-01-16 11:31] VITALS: BP 115/68; PULSE 88
== END 2022-01-16 11:35 | disposition home or self-care (01) ==
LOC: MW.SDS 06:56
PROVIDERS: ATTEND Surgery
DX: K43.0 Incisional hernia with obstruction, without gangrene (principal); I10 Essential (primary) hypertension; E78.00 Pure hypercholesterolemia, unspecified; F31.9 Bipolar disorder, unspecified; F79 Unspecified intellectual disabilities; F41.9 Anxiety disorder, unspecified; E66.9 Obesity, unspecified; Z68.36 Body mass index [BMI] 36.0-36.9, adult; Z98.890 Other specified postprocedural states; Z79.82 Long term (current) use of aspirin; Z79.899 Other long term (current) drug therapy; Z86.73 Personal history of transient ischemic attack (TIA), and cerebral infarction without residual deficits
CPT/HCPCS: 49566; 49568; C1781; J0131; J0690; J1100; J1885; J2704; J2795; J3010; J3490; J7120; 00790; 64488; J2405

== ENCOUNTER 2022-07-20 10:35 | Emergency (ER) | payer MEDICARE, MEDICAID ==
[2022-07-20] MEDS ORDERED: Sodium Chloride 0.9% 10 ML Syringe FLUSH PRN (10:56)
[2022-07-20] MEDS ORDERED: Sodium Chloride 0.9% 2.5 ML Syringe FLUSH PRN (10:56)
[2022-07-20] MEDS ORDERED: Sodium Chloride 0.9% 1,000 ML IV ONE (11:04)
[2022-07-20 12:02] VITALS: PULSE 81
[2022-07-20 12:15] LABS: CARBON DIOXIDE,CO2 28.3 mmol/L (21.0-32.0); POTASSIUM,K 3.4 mmol/L (3.5-5.1)
[2022-07-20 12:17] LABS: CORONAVIRUS COVID-19 NAA NEGATIVE (NEGATIVE); INFLUENZA A NAA NEGATIVE (NEGATIVE); INFLUENZA B NAA NEGATIVE (NEGATIVE)
[2022-07-20 14:46] VITALS: BP 135/68
== END 2022-07-20 13:55 | disposition home or self-care (01) ==
LOC: MW.ED 10:35 → MERGE 10:35 → MW.ED 13:55
DX: R42 Dizziness and giddiness (principal); Z20.822 Contact with and (suspected) exposure to COVID-19
CPT/HCPCS: 0240U; 36415; 71046; 80053; 81003; 84484; 85025; 93005; 96360; 99284; J3490; J7030

== ENCOUNTER 2023-11-23 12:25 | Emergency (ER) | payer MEDICARE, MEDICAID ==
[2023-11-23] MEDS ORDERED: Sodium Chloride 0.9% 10 ML Syringe FLUSH PRN (12:46)
[2023-11-23] MEDS ORDERED: Sodium Chloride 0.9% 2.5 ML Syringe FLUSH PRN (12:46)
[2023-11-23] MEDS ORDERED: Sodium Chloride 0.9% 1,000 ML IV ONE ×2 (12:46→15:06)
[2023-11-23 13:09] LABS: BASOPHILS ABSOLUTE AUTO 0.02 K/uL (0.00-0.20); BASOPHILS PERCENT AUTO 0.1 % (0.0-1.0); EOSINOPHILS ABSOLUTE AUTO 0.03 K/uL (0.00-0.45); EOSINOPHILS PERCENT AUTO 0.2 % (0.0-6.0); HEMATOCRIT 33.4 % (42.0-52.0); HEMOGLOBIN 11.2 g/dL (14.0-18.0); IMMATURE GRAN ABSOLUTE AUTO 0.06 K/uL (0.00-0.05); IMMATURE GRAN PERCENT AUTO 0.4 % (0.0-0.4); LYMPHOCYTES ABSOLUTE AUTO 1.14 K/uL (1.00-4.80); LYMPHOCYTES PERCENT AUTO 8.5 % (24.0-44.0); MEAN CORPUSCULAR HEMOGLOBIN 28.3 pg (28.0-32.0); MEAN CORPUSCULAR HGB CONC 33.5 g/dL (32.0-36.0); MEAN CORPUSCULAR VOLUME 84.3 fL (83.0-99.0); MEAN PLATELET VOLUME 7.9 fL (9.4-12.4); MONOCYTES ABSOLUTE AUTO 1.26 K/uL (0.00-0.80); MONOCYTES PERCENT AUTO 9.4 % (0.0-8.0); NEUTROPHILS ABSOLUTE AUTO 10.95 K/uL (1.80-7.70); NEUTROPHILS PERCENT AUTO 81.4 % (41.0-71.0); PLATELET COUNT,PLT 371 K/uL (150-400); RED BLOOD CELL COUNT 3.96 M/uL (4.52-5.90); WHITE BLOOD CELL COUNT,WBC 13.46 K/uL (3.9-11.3)
[2023-11-23 13:22] LABS: INR 1.12 (0.86-1.11)
[2023-11-23 13:42] LABS: A/G RATIO 0.4 (0.9-1.6); ALBUMIN 2.3 g/dL (3.4-5.0); BILIRUBIN TOTAL 0.4 mg/dL (0.2-1.0); CALCIUM 9.5 mg/dL (8.5-10.1); CARBON DIOXIDE,CO2 27.4 mmol/L (21.0-32.0); CREATININE 1.7 mg/dL (0.8-1.3); EST CRCL DRUG DOSING (CG) 50.25 mL/min; POTASSIUM,K 2.7 mmol/L (3.5-5.1); PROTEIN TOTAL,TP 7.9 g/dL (6.4-8.2)
[2023-11-23] MEDS ORDERED: Potassium Chloride 20 MEQ Tab.ER PO STA (15:06)
[2023-11-23] MEDS ORDERED: Potassium Chloride 20 MEQ in Premix Bag 1 BAG IV ONE ×4 (15:07)
[2023-11-23 15:27] LABS: APPEARANCE,URINE CLEAR; BILIRUBIN,URINE NEGATIVE (NEGATIVE); COLOR,URINE YELLOW; GLUCOSE,URINE NEGATIVE (NEGATIVE); KETONES,URINE NEGATIVE (NEGATIVE); LEUKOCYTE ESTERASE,URINE NEGATIVE (NEGATIVE); NITRITE,URINE NEGATIVE (NEGATIVE); OCCULT BLOOD,URINE NEGATIVE (NEGATIVE); PROTEIN,URINE NEGATIVE (NEGATIVE)
[2023-11-23] MEDS: Sodium Chloride 0.9% 1,000 ML IV ONE ×2 (15:29→15:57)
[2023-11-23] MEDS ORDERED: NS with KCl 40mEq 1,000 ML IV ONE (15:30)
[2023-11-23 16:59] LABS: C. TRACHOMATIS BY PCR NOT DETECTED; N. GONORRHOEAE BY PCR NOT DETECTED
[2023-11-23 20:11] VITALS: BP 109/62; PULSE 96
== END 2023-11-23 20:10 | disposition home or self-care (01) ==
LOC: MW.ED 12:25
DX: E87.6 Hypokalemia (principal); N28.9 Disorder of kidney and ureter, unspecified; I10 Essential (primary) hypertension; E78.00 Pure hypercholesterolemia, unspecified; E66.9 Obesity, unspecified; Z86.16 Personal history of COVID-19; Z79.82 Long term (current) use of aspirin; Z79.899 Other long term (current) drug therapy; Z68.27 Body mass index [BMI] 27.0-27.9, adult; Z20.822 Contact with and (suspected) exposure to COVID-19; W01.198A Fall on same level from slipping, tripping and stumbling with subsequent striking against other object, initial encounter
CPT/HCPCS: 36415; 70450; 71045; 72125; 80053; 81003; 84484; 85025; 85610; 87491; 87591; 93005; 96361; 96365; 96366; 99285; A9270; J3480; J3490; J7030; U0002; 93010; 99282